=== PATIENT | female | born 1990 | race Caucasian/White ===

== ENCOUNTER 2018-09-02 08:48 | Inpatient (IN) | payer OTHER ==
[2018-09-02 09:23] VITALS: BMI 38.2
[2018-09-02 09:50] LABS: Amnisure Internal Control QC ACCEPTABLE (ACCEPTABLE); Amnisure Test RUPTURE DETECTED (No Rupture)
--- NOTE | 2018-09-02 10:01 | PDOC.LDHP ---
Labor and Delivery H&P Allergies/Adverse Reactions: Allergies Allergy/AdvReac Type Severity Reaction Status Date / Time No Known Allergies Allergy Verified 09/02/18 09:25 - Plan -: HPI: This is a 27 yo at 38.3 wks presenting for suspected ROM She states when she woke up and went to the bathroom this morning she noticed that her underwear was soaked with clear fluid and she has had continued leakage since that time. She denies any recent illness. Denies burning or blood with urination. She states she noticed a little bit of spotting with the leakage. Denies vaginal burning or irritation. She denies contractions. She affirms movement. Denies ASIF, visual changes, SOB, or swelling. History: OB hx: G1 PMH: neg PSH: neg Meds: PNV Soc Hx: denies smoking, alcohol, drugs Fam Hx: denies downs, congenital defects Blood type: O- Abs screen neg Hep b neg RPR/HIV neg Rubella immune GC/CT neg GBS: neg 1 hr GCT: 91 REVIEW OF SYSTEMS: Gen: no fever, chills, or sweats Neuro: no numbness/tingling, no weakness, denies headache Eyes: no visual changes ENT: no hearing changes, no sore throat, no runny nose Resp: no cough, no SOB, no wheeze Card: denies chest pain, no palpitations GI: no N/V/D : no dysuria, no hematuria MSK: no myalgias, no joint pain/stiffness Heme: no easy bruising/bleeding Skin: no rash, no erythema PHYSICAL EXAMINATION: General: NAD, alert and oriented x3 HEENT: PERRLA, EOMI, normal sclera, oropharynx without erythema or exudate Neck: Supple. Full ROM. Heart/Cardiovascular System: RRR, Cap refill < 3 seconds, no rub, no murmur Lungs/Respiratory System: clear to auscultation bilaterally. No increased work of breathing. Room air. Abdomen/Gastro-Intestinal System: no abdominal tenderness, normal bowel sounds, Gravid Extremities: Warm extremities. No cyanosis or edema. Neuro: No gross deficits appreciated. CN 2-12 grossly intact Psychiatry: Awake, Alert and cooperative with exam Skin: No lesions, rashes, or ulcers Musculoskeletal: Full ROM A/P: This is a 27 yo at 38.3 wks presenting for suspected ROM # Term , rupture of membranes - /-2 in office, same today - GBS neg - ROM this AM, amnisure positive - Reactive strip - Pitocin for augmentation # Rh (-) - Received rhogram at 28 weeks PCP: Mariam
[2018-09-02] MEDS ORDERED: Lidocaine 1% (PF) 30 ML VIAL SC PRN (10:07)
[2018-09-02] MEDS ORDERED: NS / Oxytocin 40 units/1000ml 1,000 ML IV PRN (10:07)
[2018-09-02] MEDS ORDERED: Acetaminophen 500 MG TAB PO PRN (10:07)
[2018-09-02] MEDS ORDERED: Promethazine HCl 25 MG/ML VIAL IM PRN ×2 (10:07→16:19)
[2018-09-02] MEDS ORDERED: Ondansetron PF 4 MG/2 ML Vial IVP PRN ×2 (10:07→16:19)
[2018-09-02 10:38] LABS: Hemoglobin 11.6 g/dL (12.0-16.0); Mean Corpuscular HGB CONC 32.8 g/dL (32.0-36.0); Mean Corpuscular Hemoglobin 28.4 pg (27.0-31.0); Mean Corpuscular Volume 86.4 fL (78.0-98.0); Mean Platelet Volume 7.7 fL (7.4-10.4); Platelet Count 246 thou/uL (130-400); RBC Distribution Width 12.3 % (11.5-14.5); Red Blood Cell (RBC) Count 4.11 mill/uL (4.20-5.40); White Blood Cell (WBC) Count 9.1 thou/uL (4.8-10.8)
[2018-09-02] MEDS: NS w/ Oxytocin 10 units 500 ML IV SCH ×2 (11:00→21:07)
[2018-09-02 11:16] LABS: Syphilis Antibody Nonreactive (Nonreactive); Syphilis Antibody Index 0.03 S/CO (<1.00 Non-Reactive)
[2018-09-02 11:17] LABS: HBSAg Index 0.33 S/CO (0-0.99); Hep B Surf Ag Non-Reactive S/CO (NonReactive)
[2018-09-02] MEDS: Lactated Ringer's 1,000 ML IV SCH ×2 (12:18→16:10)
[2018-09-02] MEDS ORDERED: Fentanyl 4 mcg/Bup 0.1% Cadd 100 ML ONE ×2 (15:15→23:34)
[2018-09-02] MEDS ORDERED: Lactated Ringer's 500 ML IV PRN (16:19)
[2018-09-02] MEDS ORDERED: ePHEDrine/0.9% NaCl/PF SYRINGE 50 mg/10 ml SLOW IVP PRN (16:19)
[2018-09-02] MEDS ORDERED: Naloxone HCl 0.4 mg/ml Vial IVP PRN ×2 (16:19)
[2018-09-02] MEDS ORDERED: Acetaminophen 325 MG TAB PO PRN (16:19)
[2018-09-02] MEDS ORDERED: diphenhydrAMINE 50 MG/ML VIAL IVP PRN (16:19)
[2018-09-02] MEDS ORDERED: Eucerin (Mineral Oil/Petrolatum,White) 30 gm Jar TOP PRN (16:19)
[2018-09-02] MEDS ORDERED: Communication Order-Pharmacy FS SCH (16:30)
[2018-09-02] MEDS ORDERED: Fentanyl 4 mcg/Bupivacaine 0.1% Cassette 100 ML EPIDURAL SCH (16:30)
[2018-09-02] MEDS ORDERED: Calcium Carbonate 500 MG ChewTAB PO SCH (19:15)
[2018-09-03] MEDS: Lactated Ringer's 1,000 ML IV SCH (01:00)
[2018-09-03] MEDS ORDERED: Misoprostol 200 MCG TAB ONE (04:03)
[2018-09-03] MEDS ORDERED: Methylergonovine 0.2 MG/ML VIAL ONE (04:03)
[2018-09-03] MEDS ORDERED: Benzocaine-Menthol 82.5 ML CAN TOP PRN (06:16)
[2018-09-03] MEDS ORDERED: Misoprostol 200 MCG TAB VAG PRN (06:16)
[2018-09-03] MEDS ORDERED: Preparation H Ointment 28 GM TUBE PR PRN (06:16)
[2018-09-03] MEDS ORDERED: Bisacodyl 10 MG SUPP PR PRN (06:16)
[2018-09-03] MEDS ORDERED: Ondansetron PF 4 MG/2 ML Vial IVP PRN (06:16)
[2018-09-03] MEDS ORDERED: Zolpidem Tartrate 5 MG TAB PO PRN (06:16)
[2018-09-03] MEDS ORDERED: Lanolin Ointment 7 GM TUBE TOP PRN (06:16)
[2018-09-03] MEDS ORDERED: Adacel (T-DAP) 0.5 ML SYRINGE IM ONE (06:16)
[2018-09-03] MEDS ORDERED: diphenhydrAMINE 25 MG CAP PO PRN (06:16)
[2018-09-03] MEDS ORDERED: NS / Oxytocin 40 units/1000ml 1,000 ML IV SCH (06:30)
[2018-09-03] MEDS ORDERED: NS / Oxytocin 40 units/1000ml 1,000 ML ONE (06:47)
[2018-09-03] MEDS: ceFAZolin 1 GM/D5W 1 GM in Premix Bag 1 BAG IVPB SCH ×2 (06:55→14:51)
[2018-09-03] MEDS: Ibuprofen 800 MG TAB PO SCH ×2 (08:04→21:21)
[2018-09-03] MEDS: Acetaminophen/Codeine 30-300mg Tablet PO PRN ×3 (08:04→19:25)
[2018-09-03] MEDS ORDERED: Bupivacaine/Epinephrine 0.25% 30 ML VIAL ONE (11:11)
[2018-09-03] MEDS ORDERED: ePHEDrine/0.9% NaCl/PF SYRINGE 50 mg/10 ml ONE (11:11)
[2018-09-03] MEDS: Docusate Calcium (SURFAK) 240 MG CAP PO SCH ×2 (13:13→21:21)
[2018-09-03] MEDS: Ferrous Sulfate 325 MG TAB PO SCH ×2 (13:13→16:14)
[2018-09-03] MEDS: Prenatal Vitamin 1 TAB PO SCH (13:13)
[2018-09-03] MEDS: Triple Antibiotic Oint 1 GM Packet TOP SCH ×3 (13:13→21:27)
[2018-09-03] MEDS: Milk Of Magnesia 30 ML UDCUP PO PRN (21:21)
[2018-09-04] MEDS: Ibuprofen 800 MG TAB PO SCH ×3 (05:56→21:23)
[2018-09-04 07:53] LABS: Hemoglobin 8.9 g/dL (12.0-16.0); Mean Corpuscular HGB CONC 33.6 g/dL (32.0-36.0); Mean Corpuscular Hemoglobin 29.3 pg (27.0-31.0); Mean Corpuscular Volume 87.3 fL (78.0-98.0); Mean Platelet Volume 7.4 fL (7.4-10.4); Platelet Count 226 thou/uL (130-400); RBC Distribution Width 12.2 % (11.5-14.5); Red Blood Cell (RBC) Count 3.04 mill/uL (4.20-5.40); White Blood Cell (WBC) Count 11.9 thou/uL (4.8-10.8)
[2018-09-04] MEDS: Docusate Calcium (SURFAK) 240 MG CAP PO SCH ×2 (08:47→21:23)
[2018-09-04] MEDS: Ferrous Sulfate 325 MG TAB PO SCH ×2 (08:47→17:33)
[2018-09-04] MEDS: Triple Antibiotic Oint 1 GM Packet TOP SCH ×3 (08:47→21:43)
[2018-09-04] MEDS: Prenatal Vitamin 1 TAB PO SCH (08:47)
[2018-09-04] MEDS: Acetaminophen/Codeine 30-300mg Tablet PO PRN ×4 (10:00→21:42)
[2018-09-05] MEDS: Ibuprofen 800 MG TAB PO SCH ×2 (05:17→13:15)
[2018-09-05] MEDS: Acetaminophen/Codeine 30-300mg Tablet PO PRN ×3 (05:17→18:07)
[2018-09-05 08:08] VITALS: BP 118/68; TEMP 98.1
[2018-09-05] MEDS: Triple Antibiotic Oint 1 GM Packet TOP SCH ×2 (08:40→14:52)
[2018-09-05] MEDS: Ferrous Sulfate 325 MG TAB PO SCH ×2 (08:40→18:07)
[2018-09-05] MEDS: Docusate Calcium (SURFAK) 240 MG CAP PO SCH (08:40)
[2018-09-05] MEDS: Prenatal Vitamin 1 TAB PO SCH (08:41)
[2018-09-05] MEDS: Milk Of Magnesia 30 ML UDCUP PO PRN (13:15)
== END 2018-09-05 18:08 | disposition home or self-care (01) | DRG 768 ==
LOC: L&D/OP 08:48 → L&D 10:17 → 3SW 09-03 09:34
PROVIDERS: ADMIT Obstetrics & Gynecology; ATTEND Obstetrics & Gynecology
PROC: 10E0XZZ Delivery of Products of Conception, External Approach (ICD-10-PCS; principal; 2018-09-02)
PROC: 0DQR0ZZ Repair Anal Sphincter, Open Approach (ICD-10-PCS; 2018-09-02)
DX: O70.20 Third degree perineal laceration during delivery, unspecified (principal); Z37.0 Single live birth; Z3A.38 38 weeks gestation of pregnancy
CPT/HCPCS: 36415; 36430; 51702; 84112; 85027; 85461; 86780; 86850; 86900; 86901; 87340; 90384; 96372; 99285; J0690; J2001; J2210; J2405; J2590